=== PATIENT | male | born 1950 | race Caucasian/White ===

== ENCOUNTER 2018-10-24 15:57 | Emergency (ER) | payer MEDICARE, SELFPAY ==
[2018-10-24 16:02] VITALS: BP 153/79; PULSE 67; RESP 16; O2SAT 99; BMI 27.4
--- NOTE | 2018-10-24 16:34 | ED.DIZZY ---
HPI - Dizziness General Chief Complaint: Dizziness Stated Complaint: Stated cardiovascular issues Time Seen by Provider: 10/24/18 16:32 Source: patient Mode of arrival: ambulatory Limitations: no limitations History of Present Illness HPI Narrative: Patient is a 68-year-old male with known coronary artery disease. Several years ago he had stents placed. He has never had a heart attack. He is in the local area for work. He is from [place]. He has been working nights. He states that last night he was sitting in his truck when he had left-sided chest discomfort. He states that it was different than any prior chest pain that he has had. He took 1 of his nitroglycerin pills which she states only minimally helped his symptoms. He took another nitro pill this morning before he went to bed. He woke up several hours later. Notice tingling in bilateral hands and bilateral feet. He no longer had any chest discomfort. He came into the emergency department for evaluation. Nothing made the symptoms worse. Nothing made them better. Not worse with palpation or movement or breathing. He also took an aspirin prior to arrival. Related Data Home Medications Medication Instructions Recorded Confirmed niacin 500 mg PO TID 10/24/18 10/24/18 Previous Rx's Medication Instructions Recorded isosorbide mononitrate ER 60 mg 60 mg PO DAILY #90 tab 09/05/18 tablet,extended release 24 hr lisinopril 20 mg tablet 10 mg PO DAILY #45 tab 09/05/18 metoprolol tartrate 25 mg tablet 25 mg PO BID #180 tab 09/05/18 Allergies Allergy/AdvReac Type Severity Reaction Status Date / Time No Known Drug Allergies Allergy Verified 10/24/18 16:02 Review of Systems Constitutional Denies fever(s) and Denies headache(s) ENT Ears, Nose, Mouth, and Throat: Denies headache(s) Cardiovascular Reports chest pain, Denies rapid heart rate, Denies edema, Denies palpitations and Denies dyspnea Respiratory Denies dyspnea Gastrointestinal Gastrointestinal: Denies abdominal pain, Denies nausea and Denies vomiting Genitourinary Denies dysuria Musculoskeletal Denies myalgias, Denies arthralgias, Denies numbness and Reports tingling Integumentary/Breasts Denies lesions and Denies rash Neurologic Denies headache(s), Denies numbness and Reports tingling Endocrine Denies palpitations Hematologic/Lymphatic Denies easy bleeding and Denies easy bruising PFSH Medical History Coronary artery disease (Chronic ~1997) Hypertension (Chronic ~1997) Vision disorder (Chronic) Surgical History History of surgery (Resolved) Family History Mother Cancer Heart disease Social History Smoking Status: Former smoker Tobacco: How many years used: 7 alcohol intake: current (Occasional) Family History Mother Cancer Heart disease Social History Smoking Status: Former smoker Tobacco: How many years used: 7 alcohol intake: current (Occasional) Exam Initial Vital Signs Initial Vital Signs: Vital Signs Pulse Rate 67 10/24/18 16:02 Respiratory Rate 16 10/24/18 16:02 Blood Pressure 153/79 H 10/24/18 16:02 Pulse Oximetry 99 10/24/18 16:02 Const General: cooperative, healthy appearing, comfortable, well developed, well groomed and No acute distress Orientation: alert, awake and oriented x3 HENMT Head: normal to inspection and normocephalic Resp Effort & Inspection: normal respiratory effort Auscultation: clear to auscultation bilaterally Cardio Rate: regular rate Rhythm: regular rhythm Pulses: radial pulses present GI Inspection: non-distended Palpation: soft Skin Lesions: no lesions Rashes: no rashes Neuro General: alert, awake and oriented x3 Cranial Nerves: CN's II-XI intact bilaterally Cognition: normal cognition Speech: speech normal Gait: normal gait Motor: muscle tone normal throughout Sensory Exam: no sensory deficits noted (Patient reported no change in sensation to light touch) Extrem General: normal to inspection and capillary refill normal Psych Appearance: grossly normal and well kempt Scores GCS [place] coma scale eye opening: Spontaneous [place] coma scale verbal response: Orientated [place] coma scale motor response: Obey commands [place] coma scale total score: 15 Course Orders Ordered: ED Orders 10/24/18 16:03 EKG-12 Lead Stat 10/24/18 16:40 Basic Metabolic Panel Stat Complete Blood Count AUTO DIFF Stat Troponin I Stat 10/24/18 16:42 CT head/brain wo con Stat XR chest 1V Stat 10/24/18 19:00 Troponin I Stat Discontinued Medications Sodium Chloride (Normal Saline 0.9%) 1,000 mls @ 1,000 mls/hr IV BOLUS ONE Stop: 10/24/18 17:33 Last Infusion: 10/24/18 18:14 Dose: 0 mls/hr Admin: 10/24/18 17:07 Dose: 1,000 mls/hr Vital Signs - 8 hr 10/24/18 16:02 10/24/18 18:00 10/24/18 19:00 Pulse Rate 67 54 L 58 L Respiratory Rate 16 12 22 Blood Pressure 153/79 H Blood Pressure [Left Arm] 126/73 126/75 Pulse Oximetry 99 96 98 MDM - Dizziness Lab Data Attestation: I reviewed the patient's lab results. Result diagrams: 10/24/18 16:40 10/24/18 16:40 Lab Results 10/24/18 10/24/18 10/24/18 Range/Units 16:40 16:40 19:00 WBC 6.8 (4.5-11.0) X10^3/uL RBC 4.52 (4.5-5.9) X10^6/uL Hgb 14.4 (13.5-17.5) g/dL Hct 42.1 (41-53) % MCV 93.0 (80-100) fL MCH 31.8 (26-34) PG MCHC 34.1 (30-36) % RDW 13.7 (11.6-14.8) % Plt Count 274 (150-400) X10^3/uL Neut % (Auto) 75.4 H (50-75) % Lymph % (Auto) 14.1 L (25-40) % [place] % (Auto) 8.5 (3-14) % Eos % (Auto) 1.3 L (2-4) % Baso % (Auto) 0.7 (0-2) % Neut # (Auto) 5100 (7800-5163) /uL Lymph # (Auto) 1000 L (1253-1173) /uL [place] # (Auto) 600 (0-900) /uL Eos # (Auto) 100 (0-450) /uL Baso # (Auto) 0 (0-100) /uL Sodium 135 L (137-145) mmol/L Potassium 4.1 (3.4-5.1) mmol/L Chloride 101 (98-107) mmol/L Carbon Dioxide 23 (22-32) mmol/L BUN 14 (9-20) mg/dL Creatinine 0.80 (0.66-1.25) mg/dL Estimated GFR > 60.0 (>60) mL/min BUN/Creatinine Ratio 17.5 (6-22) Glucose 121 H (80-110) mg/dL Calcium 9.3 (8.4-10.2) mg/dL Troponin I < 0.012 < 0.012 (0.01-0.034) ng/mL Imaging Data CT scan - head: Radiologist's impression: PROCEDURE: CT HEAD/BRAIN WO CON INDICATIONS: dizziness and arm tingling TECHNIQUE: Noncontrast 4.5 mm thick angled axial sections acquired from the foramen magnum to the vertex, with coronal and sagittal reformats. For radiation dose reduction, the following was used: automated exposure control, adjustment of mA and/or kV according to patient size. COMPARISON: None. FINDINGS: Image quality: Excellent. CSF spaces: Basal cisterns are patent. No extra-axial fluid collections. The ventricles are symmetric in size and shape. Brain: No intracranial bleeds or masses. There is cerebral volume loss for age, with resultant ventricular and sulcal prominence. There are periventricular and deep white matter chronic small vessel ischemic changes. There is intracranial internal carotid artery atherosclerosis. Skull and face: Calvarium and visualized facial bones appear intact, without suspicious lesions. Sinuses: Visualized sinuses and mastoids are clear. IMPRESSION: No CT evidence of acute intracranial pathology. Age-appropriate atrophy and mild periventricular white matter microangiopathic changes. Dictated by: Hill Naik M.D. on 10/24/2018 at 16:57 Approved by: Hill Naik M.D. on 10/24/2018 at 16:57 Chest x-ray: Radiologist's impression: PROCEDURE: XR CHEST 1V INDICATIONS: chest pain TECHNIQUE: One view of the chest was acquired. COMPARISON: None. FINDINGS: Surgical changes and devices: None. Lungs and pleura: Lungs are clear. No pleural effusions or pneumothorax. Mediastinum: Mediastinal contours appear normal. Heart size is normal. Bones and chest wall: No suspicious bony lesions. Overlying soft tissues appear unremarkable. IMPRESSION: No acute cardiopulmonary pathology. Dictated by: Hill Naik M.D. on 10/24/2018 at 16:56 Approved by: Hill Naik M.D. on 10/24/2018 at 16:56 ECG Data Attestation: I personally reviewed and interpreted this ECG as follows: Prior ECG tracings: not available for review Interpretation: Sinus rhythm Ventricular rate is 61 Normal axis Normal QRS Normal QTC No ST T wave changes MDM Narrative Medical decision making narrative: Patient had no chest pain symptoms here in the emergency department. The tingling in his extremities were bilateral in in his fingers. His head CT was unremarkable as EKG was unremarkable. Troponins negative x2. Low suspicion for ACS or CVA. Will have patient follow up with his medical. He was given return precautions. He expressed understanding and agreement with plan. Discharge Plan Departure Patient Disposition: Home Clinical Impression: Distal paresthesia Chest pain Qualifiers: Chest pain type: unspecified Qualified Code(s): R07.9 - Chest pain, unspecified Instructions: DI for Chest Pain, DI for Numbness/tingling Activity Restrictions/Additional Instructions: Recommend that you continue all of your medications as directed. Return to the emergency department for any new or worsening symptoms Prescriptions: No Action isosorbide mononitrate 60 mg tablet extended release 24 hr 60 mg PO DAILY Qty: 90 RF: 1 lisinopril 20 mg tablet 10 mg PO DAILY Qty: 45 RF: 1 metoprolol tartrate 25 mg tablet 25 mg PO BID Qty: 180 RF: 1 niacin 500 mg tablet 500 mg PO TID RF: 0
--- NOTE | 2018-10-24 16:42 | DI.CT.S_ITS ---
PROCEDURE: CT HEAD/BRAIN WO CON INDICATIONS: dizziness and arm tingling TECHNIQUE: Noncontrast 4.5 mm thick angled axial sections acquired from the foramen magnum to the vertex, with coronal and sagittal reformats. For radiation dose reduction, the following was used: automated exposure control, adjustment of mA and/or kV according to patient size. COMPARISON: None. FINDINGS: Image quality: Excellent. CSF spaces: Basal cisterns are patent. No extra-axial fluid collections. The ventricles are symmetric in size and shape. Brain: No intracranial bleeds or masses. There is cerebral volume loss for age, with resultant ventricular and sulcal prominence. There are periventricular and deep white matter chronic small vessel ischemic changes. There is intracranial internal carotid artery atherosclerosis. Skull and face: Calvarium and visualized facial bones appear intact, without suspicious lesions. Sinuses: Visualized sinuses and mastoids are clear. IMPRESSION: No CT evidence of acute intracranial pathology. Age-appropriate atrophy and mild periventricular white matter microangiopathic changes. Dictated by: Hill Naik M.D. on 10/24/2018 at 16:57 Approved by: Hill Naik M.D. on 10/24/2018 at 16:57
--- NOTE | 2018-10-24 16:42 | DI.RAD.S_ITS ---
PROCEDURE: XR CHEST 1V INDICATIONS: chest pain TECHNIQUE: One view of the chest was acquired. COMPARISON: None. FINDINGS: Surgical changes and devices: None. Lungs and pleura: Lungs are clear. No pleural effusions or pneumothorax. Mediastinum: Mediastinal contours appear normal. Heart size is normal. Bones and chest wall: No suspicious bony lesions. Overlying soft tissues appear unremarkable. IMPRESSION: No acute cardiopulmonary pathology. Dictated by: Hill Naik M.D. on 10/24/2018 at 16:56 Approved by: Hill Naik M.D. on 10/24/2018 at 16:56
[2018-10-24 16:57] LABS: Add Manual Diff / Slide Review NO; Basophils Absolute Auto 0 /uL (0-100); Basophils Percent Auto 0.7 % (0-2); Eosinophils Absolute Auto 100 /uL (0-450); Eosinophils Percent Auto 1.3 % (2-4); Hematocrit 42.1 % (41-53); Hemoglobin 14.4 g/dL (13.5-17.5); Lymphocytes Absolute Auto 1000 /uL (1100-4500); Lymphocytes Percent Auto 14.1 % (25-40); Mean Corpuscular HGB Conc 34.1 % (30-36); Mean Corpuscular Hemoglobin 31.8 PG (26-34); Monocytes Absolute Auto 600 /uL (0-900); Monocytes Percent Auto 8.5 % (3-14); Neutrophils Absolute Auto 5100 /uL (1500-7000); Neutrophils Percent Auto 75.4 % (50-75); Platelet Count 274 X10^3/uL (150-400); Red Blood Cell Count 4.52 X10^6/uL (4.5-5.9); Red Cell Distribution Width 13.7 % (11.6-14.8); White Blood Cell Count 6.8 X10^3/uL (4.5-11.0)
[2018-10-24 17:05] LABS: BUN Creatinine Ratio 17.5 (6-22); Blood Urea Nitrogen 14 mg/dL (9-20); Calcium 9.3 mg/dL (8.4-10.2); Carbon Dioxide 23 mmol/L (22-32); Chloride 101 mmol/L (98-107); Estimated Glomerular Filt Rate > 60.0 mL/min (>60); Glucose 121 mg/dL (80-110); HEMOLYSIS < 15 (0-50); Potassium 4.1 mmol/L (3.4-5.1); Sodium 135 mmol/L (137-145)
[2018-10-24] MEDS: SODIUM CHLORIDE 0.9% 1,000 ML 1000 ML IV (17:07)
[2018-10-24 17:17] LABS: Troponin I < 0.012 ng/mL (0.01-0.034)
[2018-10-24 18:00] VITALS: BP 126/73; PULSE 54; RESP 12; O2SAT 96
[2018-10-24 19:00] VITALS: BP 126/75; PULSE 58; RESP 22; O2SAT 98
[2018-10-24 19:42] LABS: Troponin I < 0.012 ng/mL (0.01-0.034)
== END 2018-10-24 20:06 | disposition home or self-care (01) ==
PROVIDERS: Emergency Provider Emergency Medicine
DX: R07.9 Chest pain, unspecified (principal); R20.2 Paresthesia of skin
CPT/HCPCS: 36415; 36591; 70450; 71045; 80048; 84484; 85025; 93005; 96360; 99283; 99285

== ENCOUNTER → 2019-05-14 11:49 | Outpatient (CLI) | payer MEDICARE, SELFPAY ==
[2019-05-14 12:26] LABS: Add Manual Diff / Slide Review NO; Basophils Absolute Auto 100 /uL (0-100); Basophils Percent Auto 0.8 % (0-2); Eosinophils Absolute Auto 200 /uL (0-450); Eosinophils Percent Auto 1.8 % (2-4); Hematocrit 42.1 % (41-53); Hemoglobin 14.4 g/dL (13.5-17.5); Lymphocytes Absolute Auto 1300 /uL (1100-4500); Lymphocytes Percent Auto 14.8 % (25-40); Mean Corpuscular HGB Conc 34.2 % (30-36); Mean Corpuscular Hemoglobin 30.7 PG (26-34); Mean Corpuscular Volume 89.7 fL (80-100); Monocytes Absolute Auto 700 /uL (0-900); Monocytes Percent Auto 7.5 % (3-14); Neutrophils Absolute Auto 6700 /uL (1500-7000); Neutrophils Percent Auto 75.1 % (50-75); Platelet Count 286 X10^3/uL (150-400); Red Cell Distribution Width 13.3 % (11.6-14.8); White Blood Cell Count 8.9 X10^3/uL (4.5-11.0)
[2019-05-14 12:53] LABS: Alanine Aminotransferase 31 IU/L (21-72); Albumin 4.4 g/dL (3.5-5.0); Albumin Globulin Ratio 1.5 (1.0-2.8); Alkaline Phosphatase 59 U/L (38-126); Aspartate Aminotransferase 23 IU/L (17-59); BUN Creatinine Ratio 17.5 (6-22); Bilirubin Total 0.6 mg/dL (0.2-1.3); Blood Urea Nitrogen 14 mg/dL (9-20); Calcium 9.3 mg/dL (8.4-10.2); Carbon Dioxide 26 mmol/L (22-32); Chloride 101 mmol/L (98-107); Cholesterol 219 mg/dL (140-199); Estimated Glomerular Filt Rate > 60.0 mL/min (>60); Globulin 2.9 g/dL (1.7-4.1); Glucose 123 mg/dL (80-110); HDL Cholesterol 51 mg/dL (40-60); HEMOLYSIS < 15 (0-50); LDL Cholesterol Calculated 150 mg/dL (<100); Potassium 4.3 mmol/L (3.4-5.1); Sodium 139 mmol/L (137-145); Total Protein 7.3 g/dL (6.3-8.2); Triglycerides 92 mg/dL (35-150)
[2019-05-14 13:16] LABS: Thyroid Stimulating Hormone 1.64 uIU/mL (0.47-4.68)
[2019-05-14 13:21] LABS: Prostate Specific Antigen 1.95 ng/mL (0.10-4.00)
[2019-05-14 13:42] LABS: Appearance Urine UA CLEAR; Bilirubin Urine UA NEGATIVE (NEGATIVE); Color Urine UA YELLOW; Glucose Urine UA NEGATIVE (Negative); Ketones Urine UA NEGATIVE (NEGATIVE); Leukocyte Esterase Urine UA NEGATIVE (NEGATIVE); Nitrite Urine UA NEGATIVE (Negative); Occult Blood Urine UA NEGATIVE (Negative); Protein Urine UA NEGATIVE (Negative); Specific Gravity Urine UA <=1.005 (1.000-1.035); Urobilinogen Urine UA 0.2 E.U./dL (0.2)
== END ==
PROVIDERS: Visit Provider Family Medicine
DX: I10 Essential (primary) hypertension (principal); I25.10 Atherosclerotic heart disease of native coronary artery without angina pectoris; Z95.5 Presence of coronary angioplasty implant and graft; Z12.5 Encounter for screening for malignant neoplasm of prostate
CPT/HCPCS: 36415; 80053; 80061; 81003; 84153; 84443; 85025; G0103

== ENCOUNTER 2019-09-29 05:48 | Emergency (ER) | payer MEDICARE, SELFPAY ==
--- NOTE | 2019-09-29 05:51 | DI.RAD.S_ITS ---
PROCEDURE: XR CHEST 1V INDICATIONS: SOB TECHNIQUE: One view of the chest was acquired. COMPARISON: [facility], CR, XR CHEST 1V, 10/24/2018, 16:48. FINDINGS: Surgical changes and devices: None. Lungs and pleura: Lungs are clear. No pleural effusions or pneumothorax. Mediastinum: Mediastinal contours appear normal. The heart appears to be enlarged. Aortic atherosclerosis is present. An ovoid radiopaque density is evident overlying the region of the carline, which was not evident on the prior study and probably is overlying the patient's body. This structure is wider than the trachea. Bones and chest wall: No suspicious bony lesions. Overlying soft tissues appear unremarkable. IMPRESSION: 1. No acute cardiopulmonary process is evident. 2. Ovoid radiopaque density overlying the trachea probably represents a structure that is located outside the patient's body. Clinical correlation is recommended. Note: The preliminary ED physician interpretation and the final report are concordant. Dictated by: Moreno Smalls M.D. on 09/29/2019 at 7:15 Approved by: Moreno Smalls M.D. on 09/29/2019 at 7:17
[2019-09-29 05:55] VITALS: BP 175/91; PULSE 80; RESP 20; TEMP 37.1; O2SAT 99; BMI 27.1
--- NOTE | 2019-09-29 06:04 | ED.URI ---
HPI - URI/Sore Throat General Chief Complaint: Upper Respiratory Symptoms Stated Complaint: difficulty breathing/poss pneumonia Time Seen by Provider: 09/29/19 05:50 Source: patient Mode of arrival: Ambulatory Limitations: no limitations History of Present Illness HPI Narrative: 69-year-old male here for 1 week of cough and shortness of breath. Also has had subjective fevers. No recent travel. States that he has had a history of asthma in the past however it was brought on by strong smells. He has not been exposed any of that recently. He has tried [id number] cough and cold preparations without any improvement. This is a nonproductive cough. No chest pain. Related Data Previous Rx's Medication Instructions Recorded atorvastatin 20 mg tablet 20 mg PO QPM #90 tab 06/25/19 isosorbide mononitrate 60 mg 60 mg PO DAILY #90 tab 06/25/19 tablet,extended release 24 hr lisinopril 20 mg tablet 10 mg PO DAILY #45 tab 06/25/19 metformin 500 mg tablet,extended 500 mg PO DAILY #90 tab 06/25/19 release 24hr metoprolol tartrate 25 mg tablet 25 mg PO BID #180 tab 06/25/19 nitroglycerin 0.3 mg sublingual 0.3 mg SL Q5-15M PRN #30 tab 06/25/19 tablet Allergies Allergy/AdvReac Type Severity Reaction Status Date / Time No Known Drug Allergies Allergy Verified 06/25/19 16:04 Review of Systems Constitutional Constitutional: Denies fever(s) Cardiovascular Cardiovascular: Denies chest pain and Reports dyspnea Respiratory Respiratory: Reports cough and Reports dyspnea Gastrointestinal Gastrointestinal: Denies abdominal pain Integumentary/Breasts Skin/Breast: Denies rash Neurologic Neurologic: Denies behavioral changes Psychiatric Psychiatric: Denies behavioral changes Patient History Medical History Coronary artery disease (Chronic ~1997) Hypertension (Chronic ~1997) Vision disorder (Chronic) Family History (Updated 09/22/18 @ 21:44 by Mary Jane Lowery) Mother Cancer Heart disease Social History Smoking Status: Former smoker Tobacco: How many years used: 7 alcohol intake: current (Occasional) Smoking Status: Former smoker Exam Initial Vital Signs Initial Vital Signs: Vital Signs Temperature 98.7 F 09/29/19 05:55 Pulse Rate 80 09/29/19 05:55 Respiratory Rate 20 09/29/19 05:55 Blood Pressure 175/91 H 09/29/19 05:55 Pulse Oximetry 99 09/29/19 05:55 Const General: cooperative, healthy appearing and comfortable Resp Effort & Inspection: normal respiratory effort Auscultation: rhonchi and wheezes Cardio Rate: regular rate Rhythm: regular rhythm Skin Lesions: no lesions Rashes: no rashes Neuro General: alert and awake Extrem General: normal to inspection and capillary refill normal Psych Appearance: grossly normal and well kempt Course Orders Ordered: ED Orders 09/29/19 05:51 XR chest 1V Stat EKG-12 Lead Stat Discontinued Medications Albuterol (Ventolin Hfa Prepack) 1 box MISC SEEINSTR ONE Stop: 09/29/19 06:12 Vital Signs Vital signs: Vital Signs - 8 hr 09/29/19 05:55 Temperature 98.7 F Pulse Rate 80 Respiratory Rate 20 Blood Pressure 175/91 H Pulse Oximetry 99 MDM - URI/Sore Throat Imaging Data Chest x-ray: Attestation: I personally reviewed and interpreted this imaging study as follows: My Impression: No focal pneumonia No acute pathology ECG Data Attestation: I personally reviewed and interpreted this ECG as follows: Prior ECG tracings: not available for review Interpretation: Sinus rhythm Ventricular rate is 72 Normal axis Normal QRS Normal QTC No ST T wave changes MDM Narrative Medical decision making narrative: Patient without respiratory distress, no chest pain, normal EKG, chest x-ray shows no focal pneumonia, does have bilateral wheezing and rhonchi. Nonproductive cough, afebrile. No indication for antibiotics. We did discuss a nebulizer treatment here in the emergency department however the patient declined. Will send home with a albuterol inhaler and a spacer. He was given return precautions and follow-up instructions. He expressed understanding and agreement plan Discharge Plan Departure Patient Disposition: Home Clinical Impression: Cough, Bilateral wheezing Instructions: Cough (Alternative Therapy), Cough Activity Restrictions/Additional Instructions: Recommend that you take 2-3 puffs of the albuterol inhaler with the spacer every 4 hours for the next 24 hours. After that you can use it as needed. Continue with the [id number] cough and cold preparations as directed as needed. Return to the emergency department for any new or worsening symptoms Prescriptions: No Action metformin 500 mg tablet extended release 24hr 500 mg PO DAILY Qty: 90 RF: 1 atorvastatin 20 mg tablet 20 mg PO QPM Qty: 90 RF: 1 isosorbide mononitrate 60 mg tablet extended release 24 hr 60 mg PO DAILY Qty: 90 RF: 1 lisinopril 20 mg tablet 10 mg PO DAILY Qty: 45 RF: 1 metoprolol tartrate 25 mg tablet 25 mg PO BID Qty: 180 RF: 1 nitroglycerin 0.3 mg tablet, sublingual 0.3 mg SL Q5-15M PRN (Reason: chest pain) Qty: 30 RF: 0 Referrals: Joi Marshall DO [Primary Care Provider] -
[2019-09-29] MEDS: ALBUTEROL HFA PREPACK 1 BOX MISC (06:20)
[2019-09-29 06:30] VITALS: RESP 16
== END 2019-09-29 06:38 | disposition home or self-care (01) ==
PROVIDERS: Emergency Provider Emergency Medicine; PCP Family Medicine
DX: R05 Cough (principal); R06.2 Wheezing; R06.00 Dyspnea, unspecified; R07.9 Chest pain, unspecified
CPT/HCPCS: 71045; 93005; 94640; 99281; 99284

== ENCOUNTER → 2019-11-07 12:20 | Outpatient (CLI) | payer MEDICARE, SELFPAY ==
[2019-11-07 12:42] LABS: Add Manual Diff / Slide Review NO; Basophils Absolute Auto 100 /uL (0-100); Basophils Percent Auto 0.7 % (0-2); Eosinophils Absolute Auto 200 /uL (0-450); Eosinophils Percent Auto 2.2 % (2-4); Hematocrit 40.3 % (41-53); Hemoglobin 13.8 g/dL (13.5-17.5); Lymphocytes Absolute Auto 1300 /uL (1100-4500); Lymphocytes Percent Auto 12.4 % (25-40); Mean Corpuscular HGB Conc 34.2 % (30-36); Mean Corpuscular Volume 90.6 fL (80-100); Monocytes Absolute Auto 900 /uL (0-900); Monocytes Percent Auto 8.7 % (3-14); Neutrophils Absolute Auto 7700 /uL (1500-7000); Platelet Count 270 X10^3/uL (150-400); Red Blood Cell Count 4.45 X10^6/uL (4.5-5.9); Red Cell Distribution Width 13.2 % (11.6-14.8); White Blood Cell Count 10.2 X10^3/uL (4.5-11.0)
[2019-11-07 12:59] LABS: Alanine Aminotransferase 23 IU/L (<50); Albumin 4.6 g/dL (3.5-5.0); Albumin Globulin Ratio 1.5 (1.0-2.8); Alkaline Phosphatase 55 U/L (38-126); Aspartate Aminotransferase 24 IU/L (17-59); Bilirubin Total 0.5 mg/dL (0.2-1.3); Blood Urea Nitrogen 16 mg/dL (9-20); Calcium 8.9 mg/dL (8.4-10.2); Carbon Dioxide 24 mmol/L (22-32); Chloride 105 mmol/L (98-107); Cholesterol 126 mg/dL (140-199); Estimated Glomerular Filt Rate > 60.0 mL/min (>60); Globulin 3.1 g/dL (1.7-4.1); Glucose 127 mg/dL (80-110); HDL Cholesterol 31 mg/dL (40-60); HEMOLYSIS < 15 (0-50); LDL Cholesterol Calculated 79 mg/dL (<100); Potassium 4.3 mmol/L (3.4-5.1); Sodium 139 mmol/L (137-145); Total Protein 7.7 g/dL (6.3-8.2); Triglycerides 82 mg/dL (35-150)
[2019-11-07 13:02] LABS: Hemoglobin A1C% w Est Avg Glu 6.7 % (4.0-6.0)
== END ==
PROVIDERS: PCP Family Medicine; Referring Provider Family Medicine; Visit Provider Family Medicine
DX: E11.9 Type 2 diabetes mellitus without complications (principal); E78.5 Hyperlipidemia, unspecified; I10 Essential (primary) hypertension; R73.9 Hyperglycemia, unspecified
CPT/HCPCS: 36415; 80053; 80061; 83036; 85025